=== PATIENT | female | born 1965 | race Caucasian/White ===

== ENCOUNTER 2018-09-03 16:19 | Emergency (ER) | payer OTHER, SELFPAY ==
--- NOTE | 2018-09-03 17:07 | RAD ---
TWO VIEW CHEST: History: Cough. FINDINGS: Lungs are clear. Heart and mediastinum are unremarkable. Osseous structures are unremarkable. IMPRESSION: No acute finding. POS: [facility]
== END 2018-09-03 17:22 | disposition home or self-care (01) ==
LOC: NAV ERS 16:19
DX: F41.9 Anxiety disorder, unspecified (principal); R05 Cough; F32.9 Major depressive disorder, single episode, unspecified; K21.9 Gastro-esophageal reflux disease without esophagitis; J30.2 Other seasonal allergic rhinitis; F17.210 Nicotine dependence, cigarettes, uncomplicated; Z79.899 Other long term (current) drug therapy; Z87.01 Personal history of pneumonia (recurrent); Z79.51 Long term (current) use of inhaled steroids
CPT/HCPCS: 71046

== ENCOUNTER 2018-09-09 22:44 | Emergency (ER) | payer SELFPAY ==
[~2018-09-09 22:44] MED LIST: Iopamidol 370 76% 100 ML VIAL ONE
[2018-09-09] MEDS ORDERED: Ondansetron ODT 4 MG TAB ONE (22:46)
[2018-09-09] MEDS ORDERED: Sodium Chloride 0.9% 1,000 ML ONE (23:16)
[2018-09-09] MEDS ORDERED: Acetaminophen 325 MG TAB ONE (23:16)
[2018-09-09] MEDS ORDERED: Pantoprazole 40 MG VIAL ONE (23:16)
[2018-09-09 23:22] LABS: #Basophils 0.1 thou/uL (0.0-0.2); #Lymphocytes 1.1 thou/uL (1.20-3.40); #Monocytes 0.6 thou/uL (0.11-0.59); #Neutrophils 8.4 thou/uL (1.40-6.50); %Basophils 0.6 % (0.0-1.0); %Eosinophils 0.4 % (0.0-10.0); %Lymphocytes 10.5 % (21.0-51.0); %Monocytes 6.2 % (0.0-10.0); %Neutrophils 82.3 % (42.0-75.0); Hemoglobin 15.6 g/dL (12.0-16.0); Mean Corpuscular HGB CONC 31.7 g/dL (32.0-36.0); Mean Corpuscular Hemoglobin 29.4 pg (27.0-31.0); Mean Corpuscular Volume 92.7 fL (78.0-98.0); Mean Platelet Volume 9.7 fL (7.4-10.4); Platelet Count 264 thou/uL (130-400); RBC Distribution Width 13.3 % (11.5-14.5); White Blood Cell (WBC) Count 10.2 thou/uL (4.8-10.8)
[2018-09-09 23:33] LABS: ALT (SGPT) 21 U/L (8-55); AST (SGOT) 23 U/L (5-34); Albumin 4.4 g/dL (3.5-5.0); Alkaline Phosphatase 85 U/L (40-150); Anion Gap 15 mmol/L (10-20); BUN (Urea Nitrogen) 8 mg/dL (9.8-20.1); Bilirubin, Total 0.3 mg/dL (0.2-1.2); Calc. Creatinine Clearance 0 mL/min (70-130); Calcium 9.5 mg/dL (7.8-10.44); Carbon Dioxide 22 mmol/L (22-29); Chloride 106 mmol/L (98-107); Estimated GFR-MDRD 75; Globulin 3.3 g/dL (2.4-3.5); Glucose 132 mg/dL (70-105); Lipase 18 U/L (8-78); Potassium 3.4 mmol/L (3.5-5.1); Protein, Total 7.7 g/dL (6.0-8.3); Sodium 140 mmol/L (136-145)
[2018-09-10] MEDS ORDERED: Ondansetron PF 4 MG/2 ML Vial ONE (00:11)
[2018-09-10] MEDS ORDERED: Lidocaine Viscous Sol 2% 15 ml UD Cup ONE (00:33)
[2018-09-10] MEDS ORDERED: Mag-Al Plus 1200 MG/1200 MG/120 MG/30 ML UDCUP ONE (00:33)
[2018-09-10] MEDS ORDERED: NS 0.9% w/ 20 MEQ KCL 1,000 ML ONE (01:35)
--- NOTE | 2018-09-10 07:26 | CT ---
CT OF HEAD NONCONTRAST: INDICATION: Headache. COMPARISON: No prior imaging comparison. FINDINGS: The ventricular system is normal in size. Septum pellucidum and third ventricle are midline. There is no acute intracranial hemorrhage, mass effect, or midline shift. Paranasal sinuses are clear. IMPRESSION: No acute intracranial abnormality. POS: [facility]
--- NOTE | 2018-09-10 07:29 | CT ---
CT ABDOMEN AND PELVIS WITH CONTRAST: INDICATION: Abdominal pain in a 53-year-old female. Emesis. FINDINGS: The bowel is incompletely evaluated without enteric contrast. There are loops of mildly distended fl uid-filled small bowel. There is mild abdominal/pelvic ascites. No free air or portal vein gas. Mo tion artifact is present which does limit the evaluation. Evidence of prior cholecystectomy. Scatte red vascular calcification. No significant abnormality at the visualized lung bases. Solid abdomina l organs are grossly unremarkable. IMPRESSION: Mild distention of fluid-filled small bowel with mild ascites. This may be on the basis of partial-g rade mechanical obstruction versus ileus. If there is clinical concern for mechanical obstruction, r ecommend surgical consultation for further evaluation. If imaging followup is necessary, consider all bowel follow-through. POS: [facility]
== END 2018-09-10 01:44 | disposition short-term general hospital (02) ==
LOC: NAV ERS 22:44
DX: K56.600 Partial intestinal obstruction, unspecified as to cause (principal); R50.9 Fever, unspecified; E66.9 Obesity, unspecified; K21.9 Gastro-esophageal reflux disease without esophagitis; F41.9 Anxiety disorder, unspecified; F17.210 Nicotine dependence, cigarettes, uncomplicated; F32.9 Major depressive disorder, single episode, unspecified; Z87.01 Personal history of pneumonia (recurrent); Z79.899 Other long term (current) drug therapy; Z79.51 Long term (current) use of inhaled steroids
CPT/HCPCS: 70450; 74177; 80053; 82150; 83690; 84484; 85025; 87804; 93005; 96361; 96374; 96375; C9113; J1170; J2405; J7050; Q0162; Q9967

== ENCOUNTER 2019-05-04 12:09 | Emergency (ER) | payer OTHER, SELFPAY ==
[2019-05-04] MEDS ORDERED: Acetaminophen 500 MG TAB ONE (12:35)
[2019-05-04] MEDS ORDERED: Ondansetron ODT 4 MG TAB ONE (12:39)
--- NOTE | 2019-05-14 06:09 | PQF ---
[facility] POST DISCHARGE CLINICAL DOCUMENTATION IMPROVEMENT CLARIFICATION FORM l Todays Date: 05/10/2019 l Patients Name Melisa Trinh l l Admit Date 05/04/2019 l Disch Date 05/04/2019 Power Truck Driver Name Renetta [email or web address] Email: [email or web address]: [phone] To be completed by Power Truck Driver: Present Clinical Indicators - Signs / Symptoms Results and Location in Medical Record [ ] Documentation of: [ ] [ ] Documentation of: [ ] [ ] Documentation of: [ ] [ ] Documentation of: [ ] [ ] Risks [ ] [ ] [ ] Treatment [x] Bronchitis Query for specificity of acute or chronic bronchitis [ ] [ ] To be completed by Physician: DR. Erick MD, James The documentation in this patients record requires clarification to ensure coding compliance and accuracy. Check the appropriate box and include in your discharge summary. [ ] [ ] [ ] [ ] Please check this box if this does not apply to this patient [ ] Unable to determine [ ] Other diagnosis: Review the following information and exercise your independent professional judgment in responding to the clarification. Based upon the clinical findings, risk factors, and treatment, please clarify if you are treating one of the above probable or suspected diagnoses. Physician Signature: Date Time MTDD
== END 2019-05-04 12:44 | disposition home or self-care (01) ==
LOC: NAV ERS 12:09
DX: J01.90 Acute sinusitis, unspecified (principal); J40 Bronchitis, not specified as acute or chronic; K21.9 Gastro-esophageal reflux disease without esophagitis; F32.9 Major depressive disorder, single episode, unspecified; F41.9 Anxiety disorder, unspecified; F17.210 Nicotine dependence, cigarettes, uncomplicated; Z79.899 Other long term (current) drug therapy
CPT/HCPCS: 99283; Q0162

== ENCOUNTER 2019-06-03 03:00 | Emergency (ER) | payer OTHER ==
[2019-06-03] MEDS ORDERED: Ondansetron PF 4 MG/2 ML Vial ONE (03:38)
[2019-06-03 03:45] LABS: #Basophils 0.1 thou/uL (0.0-0.2); #Eosinphils 0.1 thou/uL (0.0-0.7); #Lymphocytes 3.3 thou/uL (1.20-3.40); #Monocytes 0.7 thou/uL (0.11-0.59); #Neutrophils 7.1 thou/uL (1.40-6.50); %Basophils 0.7 % (0.0-1.0); %Eosinophils 1.3 % (0.0-10.0); %Lymphocytes 29.3 % (21.0-51.0); %Monocytes 6.1 % (0.0-10.0); %Neutrophils 62.6 % (42.0-75.0); Mean Corpuscular Hemoglobin 30.9 pg (27.0-31.0); Mean Corpuscular Volume 93.8 fL (78.0-98.0); Mean Platelet Volume 9.7 fL (7.4-10.4); Platelet Count 277 thou/uL (130-400); RBC Distribution Width 12.7 % (11.5-14.5); Red Blood Cell (RBC) Count 3.88 mill/uL (4.20-5.40); White Blood Cell (WBC) Count 11.4 thou/uL (4.8-10.8)
[2019-06-03 04:11] LABS: Acetaminophen Less than 6.0 mcg/mL (10.0-30.0); Alcohol Less than 10 mg/dL (Less than 10); Salicylate Less than 8.0 mg/dL (15.0-30.0)
[2019-06-03 04:13] LABS: ALT (SGPT) 16 U/L (8-55); AST (SGOT) 17 U/L (5-34); Albumin 3.8 g/dL (3.5-5.0); Alkaline Phosphatase 72 U/L (40-110); Anion Gap 14 mmol/L (10-20); BUN (Urea Nitrogen) 13 mg/dL (9.8-20.1); Bilirubin, Total 0.3 mg/dL (0.2-1.2); Calc. Creatinine Clearance 0 mL/min (70-130); Calcium 8.7 mg/dL (7.8-10.44); Carbon Dioxide 24 mmol/L (22-29); Chloride 104 mmol/L (98-107); Estimated GFR-MDRD 79; Globulin 2.8 g/dL (2.4-3.5); Glucose 107 mg/dL (70-105); Potassium 3.9 mmol/L (3.5-5.1); Protein, Total 6.6 g/dL (6.0-8.3); Sodium 138 mmol/L (136-145)
[2019-06-03 04:37] LABS: Bilirubin Negative (Negative); Blood, Urine Negative (Negative); Clarity Clear (Clear); Glucose, Urine (Dipstick) Negative (Negative); Leukocyte Negative (Negative); Nitrite Negative (Negative); Protein, Urine (Dipstick) Trace mg/dL (Neg-Trace)
[2019-06-03 04:53] LABS: Amphetamine Not Detected (NotDetected); Barbiturates Screen Not Detected (NotDetected); Benzodiazepine Screen Detected (NotDetected); Cocaine Metabolite Screen Not Detected (NotDetected); Medtox Control Line Valid? VALID (VALID); Methadone Not Detected (NotDetected); Methamphetamine Not Detected (NotDetected); Opiate Screen Not Detected (NotDetected); Oxycodone Screen Not Detected (NotDetected); Phencyclidine (PCP) Not Detected (NotDetected); THC/Cannabinoid Screen Not Detected (NotDetected); Tricyclic Screen Not Detected (NotDetected)
--- NOTE | 2019-06-03 07:56 | CT ---
PRELIMINARY REPORT/[facility]/EMERGENCY AFTER HOURS PROCEDURE: EXAM: CT Head Without Intravenous Contrast. CLINICAL HISTORY: S/p syncope episode; pt fell and hit head TECHNIQUE: Axial computed tomography images of the head/brain without intravenous contrast. COMPARISON: None provided. FINDINGS: BRAIN: No acute intraparenchymal hemorrhage. No mass lesion. No CT evidence for acute territorial inf arct. No midline shift or extra-axial collection. VENTRICLES: No hydrocephalus. ORBITS: The orbits are unremarkable. SINUSES AND MASTOIDS: The paranasal sinuses and mastoid air cells are clear. SOFT TISSUES: No significant facial or scalp soft tissue swelling evident. No radiopaque foreign body is seen. BONES: No acute skull fracture. IMPRESSION: No acute intracranial abnormality. ELECTRONICALLY SIGNED BY: Bogdan Haines MD Jun 03, 2019 4:20:34 AM CARDIOLOGY TECH FINAL REPORT EMERGENT AFTER HOURS CT OF THE BRAIN WITHOUT CONTRAST: COMPARISON: 09/09/2018. FINDINGS/IMPRESSION: I agree with the findings and impression given in the preliminary report per [facility] physici an. No evidence of acute intracranial abnormality.
== END 2019-06-03 06:05 | disposition home or self-care (01) ==
LOC: NAV ERS 03:00
DX: R55 Syncope and collapse (principal); E66.9 Obesity, unspecified; K21.9 Gastro-esophageal reflux disease without esophagitis; F41.9 Anxiety disorder, unspecified; F32.9 Major depressive disorder, single episode, unspecified; F17.210 Nicotine dependence, cigarettes, uncomplicated; Z79.899 Other long term (current) drug therapy; Z79.51 Long term (current) use of inhaled steroids
CPT/HCPCS: 70450; 80053; 80306; 80307; 81003; 84443; 84484; 85025; 93005; 96361; 96374; J2405

== ENCOUNTER 2021-04-06 15:35 | Emergency (ER) | payer OTHER ==
[2021-04-07 00:07] LABS: SARS-CoV-2 PCR by NAA DETECTED (NotDetected)
== END 2021-04-06 17:15 | disposition home or self-care (01) ==
LOC: NAV ERS 15:35
DX: U07.1 COVID-19 (principal); F17.210 Nicotine dependence, cigarettes, uncomplicated; K21.9 Gastro-esophageal reflux disease without esophagitis
CPT/HCPCS: 87804; 99284; U0003; U0005

== ENCOUNTER 2021-04-23 13:28 | Emergency (ER) | payer OTHER | END 2021-04-23 14:42 | disposition home or self-care (01) | LOC: NAV ERS 13:28 | DX: Z00.00 Encounter for general adult medical examination without abnormal findings (principal); K21.9 Gastro-esophageal reflux disease without esophagitis; E66.9 Obesity, unspecified; F17.210 Nicotine dependence, cigarettes, uncomplicated | CPT/HCPCS: 99282 ==

== ENCOUNTER → 2021-05-21 | Emergency (ER) | payer OTHER ==
[~2021-05-21] MED LIST changes: +Bacitracin 1 PK ONE; -Iopamidol 370 76% 100 ML VIAL ONE
== END ==
LOC: NAV ERS 14:46
DX: Z48.817 Encounter for surgical aftercare following surgery on the skin and subcutaneous tissue (principal); K21.9 Gastro-esophageal reflux disease without esophagitis; E66.9 Obesity, unspecified; F17.210 Nicotine dependence, cigarettes, uncomplicated; Z86.16 Personal history of COVID-19; Z79.899 Other long term (current) drug therapy
CPT/HCPCS: 99283

== ENCOUNTER 2021-05-28 10:56 | Emergency (ER) | payer OTHER ==
[2021-05-28] MEDS ORDERED: Acetaminophen 325 MG TAB ONE (11:37)
[2021-05-28] MEDS ORDERED: predniSONE 20 MG TAB ONE (12:35)
[2021-05-28] MEDS ORDERED: Azithromycin 250 MG TAB ONE (12:35)
[2021-05-28 22:45] LABS: SARS-CoV-2 PCR by NAA Not Detected (NotDetected)
== END 2021-05-28 12:47 | disposition home or self-care (01) ==
LOC: NAV ERS 10:56
DX: B34.9 Viral infection, unspecified (principal); J42 Unspecified chronic bronchitis; Z20.822 Contact with and (suspected) exposure to COVID-19; K21.9 Gastro-esophageal reflux disease without esophagitis; E66.9 Obesity, unspecified; F17.210 Nicotine dependence, cigarettes, uncomplicated; Z79.899 Other long term (current) drug therapy
CPT/HCPCS: 71045; J7512; U0003; U0005

== ENCOUNTER 2021-11-18 17:09 | Emergency (ER) | payer OTHER | END 2021-11-18 18:45 | disposition home or self-care (01) | LOC: NAV ERS 17:09 | DX: J06.9 Acute upper respiratory infection, unspecified (principal); E66.9 Obesity, unspecified; K21.9 Gastro-esophageal reflux disease without esophagitis; F17.210 Nicotine dependence, cigarettes, uncomplicated; Z20.822 Contact with and (suspected) exposure to COVID-19 | CPT/HCPCS: 99283; U0003; U0005 ==

== ENCOUNTER 2022-02-17 14:45 | Emergency (ER) | payer OTHER ==
[2022-02-17] MEDS ORDERED: Albuterol Sulfate 2.5 mg/0.5 ml Neb ONE (15:57)
[2022-02-17] MEDS ORDERED: Ipratropium Bromide 2.5 ml Neb ONE (16:04)
[2022-02-17] MEDS ORDERED: Acetaminophen 500 MG TAB ONE (16:07)
== END 2022-02-17 17:12 | disposition home or self-care (01) ==
LOC: NAV ERS 14:45
DX: U07.1 COVID-19 (principal); J44.9 Chronic obstructive pulmonary disease, unspecified; K21.9 Gastro-esophageal reflux disease without esophagitis; F17.200 Nicotine dependence, unspecified, uncomplicated; Z79.899 Other long term (current) drug therapy
CPT/HCPCS: 71046; 87804; 94760; J7611; U0003; U0005

== ENCOUNTER 2022-02-22 10:55 | Emergency (ER) | payer OTHER | END 2022-02-22 12:20 | disposition home or self-care (01) | LOC: NAV ERS 10:55 | DX: U07.1 COVID-19 (principal); K21.9 Gastro-esophageal reflux disease without esophagitis; J44.9 Chronic obstructive pulmonary disease, unspecified; I10 Essential (primary) hypertension; F17.200 Nicotine dependence, unspecified, uncomplicated; Z79.899 Other long term (current) drug therapy | CPT/HCPCS: 99283 ==

== ENCOUNTER 2023-01-23 17:30 | Emergency (ER) | payer OTHER | END 2023-01-23 18:57 | disposition home or self-care (01) | LOC: NAV ERS 17:30 | DX: J01.90 Acute sinusitis, unspecified (principal); B34.9 Viral infection, unspecified; J44.9 Chronic obstructive pulmonary disease, unspecified; I10 Essential (primary) hypertension; K21.9 Gastro-esophageal reflux disease without esophagitis; E66.9 Obesity, unspecified; F17.200 Nicotine dependence, unspecified, uncomplicated; Z20.822 Contact with and (suspected) exposure to COVID-19 | CPT/HCPCS: 36416; 87635; 87804; 99283 ==

== ENCOUNTER 2023-02-05 23:10 | Emergency (ER) | payer OTHER | END 2023-02-05 23:57 | disposition home or self-care (01) | LOC: NAV ERS 23:10 | DX: H93.8X1 Other specified disorders of right ear (principal); J44.9 Chronic obstructive pulmonary disease, unspecified; I10 Essential (primary) hypertension; F17.210 Nicotine dependence, cigarettes, uncomplicated; K21.9 Gastro-esophageal reflux disease without esophagitis; Z79.899 Other long term (current) drug therapy | CPT/HCPCS: 99282 ==

== ENCOUNTER 2023-07-20 20:43 | Emergency (ER) | payer OTHER, SELFPAY ==
[2023-07-20] MEDS ORDERED: methylPREDNISolone Acetate 40 mg/ml Vial ONE (22:12)
[2023-07-20] MEDS ORDERED: Ipratropium/Albuterol 3 ML NEB ONE (22:12)
[2023-07-20] MEDS ORDERED: Clindamycin 150 MG CAP ONE (22:30)
[2023-07-20] MEDS ORDERED: Atenolol 25 MG TAB ONE (22:30)
[2023-07-20 22:59] LABS: SARS-CoV-2 NAA Rapid Test Not Detected (NotDetected)
== END 2023-07-20 23:36 | disposition home or self-care (01) ==
LOC: NAV ERS 20:43
DX: J44.1 Chronic obstructive pulmonary disease with (acute) exacerbation (principal); J01.10 Acute frontal sinusitis, unspecified; R03.0 Elevated blood-pressure reading, without diagnosis of hypertension; F17.210 Nicotine dependence, cigarettes, uncomplicated; I10 Essential (primary) hypertension
CPT/HCPCS: 0241U; 71046; 87070; 87205; 94640; 94760; 96372; J1030; J7620

== ENCOUNTER 2023-07-21 19:25 | Emergency (ER) | payer SELFPAY ==
[2023-07-21] MEDS ORDERED: Acetaminophen 500 MG TAB ONE (19:43)
[2023-07-21] MEDS ORDERED: Atenolol 25 MG TAB ONE (19:48)
== END 2023-07-21 20:06 | disposition home or self-care (01) ==
LOC: NAV ERS 19:25
DX: I10 Essential (primary) hypertension (principal); F41.9 Anxiety disorder, unspecified; J44.9 Chronic obstructive pulmonary disease, unspecified; F17.210 Nicotine dependence, cigarettes, uncomplicated
CPT/HCPCS: 99284

== ENCOUNTER 2023-12-12 09:25 | Emergency (ER) | payer OTHER ==
[2023-12-12] MEDS ORDERED: Ondansetron PF 4 MG/2 ML Vial ONE (10:30)
[2023-12-12] MEDS ORDERED: Sodium Chloride 0.9% 1,000 ML ONE (10:30)
[2023-12-12 10:36] LABS: #Basophils 0.1 thou/uL (0.0-0.2); #Eosinphils 0.2 thou/uL (0.0-0.7); #Lymphocytes 3.6 thou/uL (1.20-3.40); #Monocytes 0.4 thou/uL (0.11-0.59); #Neutrophils 6.1 thou/uL (1.40-6.50); %Basophils 0.8 % (0.0-1.0); %Lymphocytes 34.6 % (21.0-51.0); %Monocytes 3.8 % (0.0-10.0); %Neutrophils 58.7 % (42.0-75.0); Hematocrit 43.6 % (36.0-47.0); Hemoglobin 13.9 g/dL (12.0-16.0); Mean Corpuscular Hemoglobin 29.3 pg (27.0-31.0); Mean Corpuscular Volume 91.8 fl (78.0-98.0); Mean Platelet Volume 10.7 fL (7.4-10.4); Platelet Count 182 10x3/uL (130-400); RBC Distribution Width 12.3 % (11.5-14.5); Red Blood Cell (RBC) Count 4.75 mill/uL (4.20-5.40); White Blood Cell (WBC) Count 10.3 10x3/uL (4.8-10.8)
[2023-12-12 10:50] LABS: ALT (SGPT) 22 U/L (8-55); AST (SGOT) 16 U/L (5-34); Alkaline Phosphatase 83 U/L (40-110); Anion Gap 14 mmol/L (10-20); BUN (Urea Nitrogen) 11 mg/dL (9.8-20.1); Bilirubin, Total 0.5 mg/dL (0.2-1.2); Calc. Creatinine Clearance 0 mL/min (70-130); Carbon Dioxide 27 mmol/L (22-29); Chloride 104 mmol/L (98-107); Estimated GFR 79; Globulin 2.9 g/dL (2.4-3.5); Glucose 107 mg/dL (70-105); Potassium 3.8 mmol/L (3.5-5.1); Protein, Total 6.9 g/dL (6.0-8.3); Sodium 141 mmol/L (136-145)
[2023-12-12 11:58] LABS: Bilirubin Negative (Negative); Blood, Urine Negative (Negative); Clarity Clear (Clear); Glucose, Urine (Dipstick) Negative (Negative); Ketone, Urine Negative (Negative); Leukocyte Trace (Negative); Nitrite Negative (Negative); Protein, Urine (Dipstick) Negative (Neg-Trace); Specific Gravity, Urine 1.025 (1.002-1.036); Urobilinogen 0.2 mg/dL (Less than 2)
[2023-12-12 11:59] LABS: Urine Culture Reflex No No
[2023-12-12 12:01] LABS: CAUTI Indications for Culture Dysuria,urgency,freq
[2023-12-12 12:02] LABS: Bacteria/HPF 3+ HPF (None Seen)
== END 2023-12-12 12:35 | disposition home or self-care (01) ==
LOC: NAV ERS 09:25
DX: B34.9 Viral infection, unspecified (principal); R11.2 Nausea with vomiting, unspecified; D72.829 Elevated white blood cell count, unspecified; E11.9 Type 2 diabetes mellitus without complications; I10 Essential (primary) hypertension; F17.210 Nicotine dependence, cigarettes, uncomplicated; Z79.899 Other long term (current) drug therapy
CPT/HCPCS: 80053; 81001; 85025; 96361; 96374; J2405; J7050

== ENCOUNTER 2024-03-10 10:41 | Emergency (ER) | payer OTHER ==
[2024-03-10] MEDS ORDERED: Ipratropium/Albuterol 3 ML NEB ONE (11:14)
[2024-03-10] MEDS ORDERED: cefTRIAXone (ROCEPHIN) 1 GM VIAL ONE (11:14)
[2024-03-10] MEDS ORDERED: methylPREDNISolone Sod Succ/PF 125 MG/2 ML VIAL ONE (11:15)
[2024-03-10] MEDS ORDERED: Lidocaine 1% (PF) 30 ML VIAL ONE (11:23)
== END 2024-03-10 12:10 | disposition home or self-care (01) ==
LOC: NAV ERS 10:41
DX: J44.1 Chronic obstructive pulmonary disease with (acute) exacerbation (principal); I10 Essential (primary) hypertension; E11.9 Type 2 diabetes mellitus without complications; F17.210 Nicotine dependence, cigarettes, uncomplicated
CPT/HCPCS: 87428; 96372; 96374; J0696; J2001; J2919; J7620

== ENCOUNTER 2024-08-30 08:04 | Emergency (ER) | payer OTHER ==
[2024-08-30] MEDS ORDERED: Ipratropium/Albuterol 3 ML NEB ONE (08:34)
[2024-08-30] MEDS ORDERED: Dexamethasone 4 MG TAB ONE (08:35)
== END 2024-08-30 09:10 | disposition home or self-care (01) ==
LOC: NAV ERS 08:04
DX: J20.9 Acute bronchitis, unspecified (principal); I10 Essential (primary) hypertension; E11.9 Type 2 diabetes mellitus without complications; E66.9 Obesity, unspecified; J44.9 Chronic obstructive pulmonary disease, unspecified; F17.210 Nicotine dependence, cigarettes, uncomplicated; Z79.51 Long term (current) use of inhaled steroids
CPT/HCPCS: 71046; 87081; 87428; 87430; J7620; J8540

== ENCOUNTER 2025-04-24 07:49 | Emergency (ER) | payer MEDICAID, OTHER ==
[2025-04-24] MEDS ORDERED: Dexamethasone 4 MG TAB ONE (08:23)
== END 2025-04-24 08:39 | disposition home or self-care (01) ==
LOC: NAV ERS 07:49
DX: J44.9 Chronic obstructive pulmonary disease, unspecified (principal); J06.9 Acute upper respiratory infection, unspecified; I10 Essential (primary) hypertension; E11.9 Type 2 diabetes mellitus without complications; E66.9 Obesity, unspecified; F17.210 Nicotine dependence, cigarettes, uncomplicated
CPT/HCPCS: J8540

== ENCOUNTER 2025-05-16 14:23 | Emergency (ER) | payer OTHER ==
[2025-05-16] MEDS ORDERED: Mag-Al Plus 1200/1200/120 MG (30 mL) UDCUP ONE (15:07)
[2025-05-16] MEDS ORDERED: Famotidine 20 MG TAB ONE (15:07)
[2025-05-16] MEDS ORDERED: Lidocaine Viscous Sol 2% 15 ml UD Cup ONE (15:08)
== END 2025-05-16 15:39 | disposition home or self-care (01) ==
LOC: NAV ERS 14:23
DX: K21.00 Gastro-esophageal reflux disease with esophagitis, without bleeding (principal); I10 Essential (primary) hypertension; J44.9 Chronic obstructive pulmonary disease, unspecified; E11.9 Type 2 diabetes mellitus without complications; E66.9 Obesity, unspecified; F17.210 Nicotine dependence, cigarettes, uncomplicated; Z79.899 Other long term (current) drug therapy
CPT/HCPCS: 93005; 99283